=== PATIENT | female | born 1985 | race Caucasian/White ===

== ENCOUNTER → 2017-05-17 | Outpatient (CLI) | payer BC ==
[~2017-05-17] MED LIST: CEFTIN500 MG PO; DEPO-PROVER150 MG/M1; FLEXERIL 1010 MG/TAB PO; FLOMAX 0.40.4 MG/CAP PO; LEXAPRO20 MG PO; MULTI VITAMINS1 TAB PO; NORCO 325 MG-101 TAB PO; NORCO 325 MG-51 TAB PO; PERCOCET 325 MG1 TA2 PO; PRILOSEC10 MG PO; PROFERRIN ES12 MG; VITAMIN D 1001000 IU PO
== END ==
LOC: COL.RAD 07:19
DX: N20.0 Calculus of kidney (principal)